=== PATIENT | male | born 1970 | race Caucasian/White ===

== ENCOUNTER 2017-02-24 12:00 | Emergency (ER) | payer OTHER ==
[2017-02-24 12:08] VITALS: BP 166/104
[2017-02-24] MEDS ORDERED: Amoxicillin/Clavulanate TAB* 875 MG PO ONE (13:06)
[2017-02-24 14:05] LABS: Hematocrit 44 % (42-52); Mean Corpuscular HGB Conc 34 g/dl (31-36); Mean Corpuscular Hemoglobin 33 pg (27-31); Mean Corpuscular Volume 96 fL (80-94); Mean Platelet Volume 8 um3 (7.4-10.4); Red Blood Count 4.59 10^6/ul (4.0-5.4); Red Cell Distribution Width 15 % (10.5-15); White Blood Count 9.1 10^3/ul (3.5-10.8)
[2017-02-24 16:45] LABS: Albumin 4.6 g/dL (3.2-5.2); BUN/Creatinine Ratio 12.5 (8-20); Calcium 9.3 mg/dL (8.6-10.3); EGFR African American 133.3 (>60); EGFR Non-African American 103.6 (>60); Globulin 3.2 g/dL (2-4); Potassium 4.6 mmol/L (3.5-5.0); Total Bilirubin 0.6 mg/dL (0.2-1.0); Total Protein 7.8 g/dL (6.4-8.9)
--- NOTE | 2017-02-25 17:05 | ED ---
Kendal Joaquin Rebecca, scribed for Collin Tillman MD on 02/24/17 at 1301 . Throat Pain/Nasal Congestion - HPI Summary HPI Summary: Pt is a 46 y/o M who presents to ED c/o right ear bleeding. Sx began gradually last night at 2300 and have been intermittent since onset. Reports using Q-Tips in the ear to try to clear out some of the blood. Sx aggravated and alleviated by nothing. Additionally c/o mild R-sided parietal RODGERS, ranked 2/10. Denies any fever, chills, nasal congestion or pain in the R ear. Pt takes Warfarin to treat A Fib. Has not been swimming recently. No recent trauma. No prior similar episodes - History of Current Complaint Chief Complaint: EDEarPain Hx Obtained From: Patient Onset/Duration: Gradual Onset, Lasting Hours, Still Present Associated Signs And Symptoms: Positive: Negative - Allergies/Home Medications Allergies/Adverse Reactions: Allergies Allergy/AdvReac Type Severity Reaction Status Date / Time No Known Allergies Allergy Verified 12/21/16 13:59 PMH/Surg Hx/FS Hx/Imm Hx Endocrine/Hematology History: Denies: Hx Anticoagulant Therapy, Hx Diabetes, Hx Systemic Lupus Erythematosus, Hx Anemia, Hx Unexplained Bleeding Cardiovascular History: Reports: Hx Angina, Hx Atrial Fibrillation, Hx Hypercholesterolemia, Hx Hypertension Denies: Hx Aneurysm, Hx Angioplasty, Hx Auto Implanted Cardiovert Defib, Hx Cardiac Arrest, Hx Cardiomegaly, Hx Congenital Heart Disease, Hx Congestive Heart Failure, Hx Coronary Artery Disease, Hx Deep Vein Thrombosis, Hx Embolism , Hx Hypotension, Hx Myocardial Infarction, Hx Pacemaker/ICD, Hx Peripheral Vascular Disease, Hx Rheumatic Fever, Hx Syncope, Hx Valvular Heart Disease, Other Cardiovascular Problems/Disorders Respiratory History: Reports: Hx Asthma Denies: Hx Chronic Obstructive Pulmonary Disease (COPD) History: Denies: Hx Renal Disease Musculoskeletal History: Reports: Hx Back Problems - chronic back pain Denies: Hx Osteoporosis Sensory History: Reports: Hx Contacts or Glasses, Hx Vision Problem Denies: Hx Hearing Aid Opthamlomology History: Reports: Hx Contacts or Glasses, Hx Vision Problem Neurological History: Reports: Hx Seizures Denies: Hx Dementia, Hx Developmental Delay, Hx Headaches, Hx Migraine, Hx Nerve Disease, Hx Spinal Cord Injury, Hx Transient Ischemic Attacks (TIA), Other Neuro Impairments/Disorders Psychiatric History: Reports: Hx Substance Abuse - alcohol Denies: Hx Panic Disorder - Immunization History Date of Tetanus Vaccine: unknown Date of Influenza Vaccine: unknown Infectious Disease History: No Infectious Disease History: Denies: Hx Clostridium Difficile, Hx Hepatitis, Hx Human Immunodeficiency Virus (HIV), Hx of Known/Suspected MRSA, Hx Shingles, Hx Tuberculosis, Hx Known/ Suspected VRE, Hx Known/Suspected VRSA, History Other Infectious Disease, Traveled Outside the [place] in Last 30 Days - Family History Known Family History: Positive: Cardiac Disease, Diabetes - Social History Alcohol Use: Weekly Alcohol Amount: 1-2 times per week Substance Use Type: Reports: None Smoking Status (MU): Current Every Day Smoker Type: Cigarettes Amount Used/How Often: 1/2 PPD Length of Time of Smoking/Using Tobacco: 30 years Have You Smoked in the Last Year: Yes Review of Systems Negative: Fever, Chills ENT: Other - R ear bleeding Positive: Other - Denies nasal congestion. Negative: Ear Ache Positive: Headache - Mild R-sided parietal RODGERS All Other Systems Reviewed And Are Negative: Yes Physical Exam - Summary Physical Exam Summary: VITAL SIGNS: Reviewed. GENERAL: ~Patient is a well-developed and nourished male who is lying comfortable in the stretcher. ~Patient is not in any acute respiratory distress. HEAD AND FACE: No signs of trauma. ~No ecchymosis, hematomas or skull depressions. No sinus tenderness. EYES: PERRLA, EOMI x 2, No injected conjunctiva, no nystagmus. EARS: Hearing grossly intact. L ear canal and TM is within normal limits. R TM is perforated with some blood in the ear canal without any actively bleeding. MOUTH: Oropharynx within normal limits. NECK: Supple, trachea is midline, no adenopathy, no JVD, no carotid bruit, no c- spine tenderness, neck with full ROM. CHEST: Symmetric, no tenderness at palpation LUNGS: Clear to auscultation bilaterally. No wheezing or crackles. CVS: Regular rate and rhythm, S1 and S2 present, no murmurs or gallops appreciated. ABDOMEN: Soft, non-tender. No signs of distention. No rebound no guarding, and no masses palpated. Bowel sounds are normal. EXTREMITIES: FROM in all major joints, no edema, no cyanosis or clubbing. NEURO: Alert and oriented x 3. No acute neurological deficits. Speech is normal and follows commands. SKIN: Dry and warm Triage Information Reviewed: Yes Vital Signs On Initial Exam: Initial Vitals Temp Pulse Resp BP Pulse Ox 97.8 F 66 20 166/104 100 02/24/17 12:02 02/24/17 12:02 02/24/17 12:02 02/24/17 12:02 02/24/17 12:02 Vital Signs Reviewed: Yes Diagnostics - Vital Signs Vital Signs Temp Pulse Resp BP Pulse Ox 02/24/17 12:05 97.8 F 74 20 166/104 100 02/24/17 12:02 97.8 F 66 20 166/104 100 - Laboratory Lab Results: Lab Results 02/24/17 02/24/17 02/24/17 Range/Units 13:55 13:55 13:55 WBC 9.1 (3.5-10.8) 10^3/ul RBC 4.59 (4.0-5.4) 10^6/ul Hgb 15.0 (14.0-18.0) g/dl Hct 44 (42-52) % MCV 96 H (80-94) fL MCH 33 H (27-31) pg MCHC 34 (31-36) g/dl RDW 15 (10.5-15) % Plt Count 188 (150-450) 10^3/ul MPV 8 (7.4-10.4) um3 Neut % (Auto) 56.9 (38-83) % Lymph % (Auto) 20.7 L (25-47) % Greer % (Auto) 11.9 H (1-9) % Eos % (Auto) 9.2 H (0-6) % Baso % (Auto) 1.3 (0-2) % Absolute Neuts (auto) 5.2 (1.5-7.7) 10^3/ul Absolute Lymphs (auto) 1.9 (1.0-4.8) 10^3/ul Absolute Monos (auto) 1.1 H (0-0.8) 10^3/ul Absolute Eos (auto) 0.8 H (0-0.6) 10^3/ul Absolute Basos (auto) 0.1 (0-0.2) 10^3/ul Absolute Nucleated RBC 0.01 10^3/ul Nucleated RBC % 0.1 INR (Anticoag Therapy) 3.88 H (0.89-1.11) Sodium 130 L (133-145) mmol/L Potassium 4.6 (3.5-5.0) mmol/L Chloride 98 L (101-111) mmol/L Carbon Dioxide 26 (22-32) mmol/L Anion Gap 6 (2-11) mmol/L BUN 10 (6-24) mg/dL Creatinine 0.80 (0.67-1.17) mg/dL Est GFR ( Amer) 133.3 (>60) Est GFR (Non-Af Amer) 103.6 (>60) BUN/Creatinine Ratio 12.5 (8-20) Glucose 98 (70-100) mg/dL Calcium 9.3 (8.6-10.3) mg/dL Total Bilirubin 0.60 (0.2-1.0) mg/dL AST 27 (13-39) U/L ALT 21 (7-52) U/L Alkaline Phosphatase 72 (34-104) U/L Total Protein 7.8 (6.4-8.9) g/dL Albumin 4.6 (3.2-5.2) g/dL Globulin 3.2 (2-4) g/dL Albumin/Globulin Ratio 1.4 (1-3) Result Diagrams: 02/24/17 13:55 02/24/17 13:55 Lab Statement: Any lab studies that have been ordered have been reviewed, and results considered in the medical decision making process. Re-Evaluation - Re-Evaluation First Eval Re-Evaluation Time: 14:40 Change: Improved Comment: Discussed results and D/C plan with the patient EENT Course/Dx - Course Assessment/Plan: Pt is a 46 y/o M who presents to ED c/o right ear bleeding. Sx began gradually last night at 2300 and have been intermittent since onset. Reports using Q-Tips in the ear to try to clear out some of the blood. Sx aggravated and alleviated by nothing. Additionally c/o mild R-sided parietal RODGERS , ranked 2/10. Denies any fever, chills, nasal congestion or pain in the R ear. Pt takes Warfarin to treat A Fib. Has not been swimming recently. No recent trauma. No prior similar episodes. Test results show INR is 3.88, normal HNH. In the PE, the patient reveals that he has a R TM perforation. The patient is not actively bleeding. He has remnants of blood which I moved. It seems that last night, the patient was cleaning his ear with a Q-Tip and likely perforated the TM. The patient was placed on Augmentin and will be D/C to home with follow up with ENT. The patient denies any hearing loss, fever, chills or any pain. He is hemodynamically stable and A&Ox3. - Differential Diagnoses Differential Diagnoses: Other - Otitis Media, Otitis Externa, - Diagnoses Provider Diagnoses: Tympanic membrane perforation Discharge - Discharge Plan Condition: Stable Disposition: HOME Prescriptions: Amoxicillin/Clavulanate TAB* [Augmentin TAB 875*] 875 mg PO BID #9 tab Patient Education Materials: Ruptured Eardrum (ED) Referrals: Melecio Nunez MD [Medical Doctor] - 3 Days The documentation as recorded by the Kendal oliveira Rebecca accurately reflects the service I personally performed and the decisions made by , Collin Tillman MD.
== END 2017-02-24 14:57 | disposition home or self-care (01) ==
LOC: ED 12:00
DX: H72.90 Unspecified perforation of tympanic membrane, unspecified ear (principal); R51 Headache; R09.81 Nasal congestion; F17.210 Nicotine dependence, cigarettes, uncomplicated
CPT/HCPCS: 36415; 80053; 85025; 85610; 99282; A9270-GY

== ENCOUNTER → 2017-12-29 17:11 | Emergency (ER) | payer OTHER ==
[~2017-12-29 17:11] MED LIST: Al Hydrox/Mg Hydrox/Simet LIQ* 30 ML UDC PO ONE; Amiodarone IV VIAL* 50 MG/ML 3 ML VIAL (150 MG) ONE; Aspirin 81 mg CHEW TAB* 81 MG TAB.CHEW PO ONE; Atropine SYRINGE* 0.1 MG/ML 10 ML SYRINGE (1 MG) ONE; EPINEPHrine SYR 0.1 MG/ML* (1:10,000) SYRINGE ONE; Famotidine IV* 10 MG/ML 2 ML (20 mg) IV SLOW PU ONE; Famotidine IV* 10 MG/ML 2 ML (20 mg) ONE; LORazepam INJ* 2 MG/ML 1 ML VIAL ONE; Midazolam* 1 MG/ML 5 ML VIAL (5 MG) ONE; Ondansetron INJ* 2 MG/ML VIAL IV ONE; Ondansetron INJ* 2 MG/ML VIAL ONE; Sodium Bicarbonate 8.4%* 50 ML SYRINGE ONE
--- NOTE | 2017-12-29 18:04 | RAD ---
INDICATION: Chest pain. COMPARISON: Comparison is made with a prior study from March 23, 2015. TECHNIQUE: A portable view of the chest was obtained. FINDINGS: Cardiac and mediastinal contours appear to be within normal limits. The lungs are clear. No pleural effusion is seen. IMPRESSION: NO EVIDENCE FOR ACUTE DISEASE.
[2017-12-29 18:12] LABS: ABS Basophils 0.1 10^3/ul (0-0.2); ABS Eosinophils 0.6 10^3/ul (0-0.6); ABS Lymphocytes 1.5 10^3/ul (1.0-4.8); ABS Monocytes 0.7 10^3/ul (0-0.8); ABS Neutrophils 7.2 10^3/ul (1.5-7.7); ABS Nucleated RBC 0 10^3/ul; Eosinophil % 5.7 % (0-6); Hematocrit 44 % (42-52); Hemoglobin 15.3 g/dl (14.0-18.0); Lymphocyte % 14.8 % (25-47); Mean Corpuscular HGB Conc 35 g/dl (31-36); Mean Corpuscular Hemoglobin 34 pg (27-31); Mean Corpuscular Volume 97 fL (80-94); Mean Platelet Volume 7.5 um3 (7.4-10.4); Nucleated Red Blood Cells % 0.1; Platelet Count 220 10^3/ul (150-450); Red Blood Count 4.54 10^6/ul (4.0-5.4); Red Cell Distribution Width 14 % (10.5-15)
[2017-12-29 18:29] LABS: INR 3.42 (0.77-1.02)
[2017-12-29 18:30] LABS: EGFR Non-African American 96.2 (>60)
[2017-12-29 19:09] VITALS: BP 132/103
--- NOTE | 2017-12-29 21:30 | ED ---
HPI Chest Pain - HPI Summary HPI Summary: Patient is a 47-year-old male BIBA with a history of cardiomegaly, hypertension , atrial fibrillation presenting to the ED with chief complaint of mid to upper sternal chest pain which radiated up into the neck which occurred approximately 1 hour prior to arrival and lasting approximately 10 minutes. He is asymptomatic on arrival. He states he does not currently have chest pain, denies shortness of breath denies nausea, vomiting, diarrhea, constipation, headache, visual changes or throat pain. He denies ingesting anything abnormal. Patient is a heavy smoker and drinks alcohol frequently. Currently on Coumadin through Dr. Dunlap and last cardiology visit was 2017. Patient of Dr. Monteiro and [employer] is Dr. Ordonez. He's never had anything like this before. Symptoms are not aggravated with positioning or medication. Symptoms are alleviated by spontaneous resolution. Denies any vigorous exercise or sports. Denies recent URI. I am He was given 4 baby aspirin in the ambulance PUNCH HAND. - History of Current Complaint Chief Complaint: EDChestPainROMI Time Seen by Provider: 12/29/17 17:37 Hx Obtained From: Patient Onset/Duration: Started Hours Ago Time of Onset: 04:45 Timing: Constant, Lasting Minutes Initial Severity: Moderate Current Severity: None Pain Intensity: 0 Pain Scale Used: 0-10 Numeric Chest Pain Location: Upper Sternal - radiating to the neck Chest Pain Radiates: Yes Chest Pain Radiates To:: Neck Character: Other: - burning Aggravating Factor(s): Nothing Alleviating Factor(s): Spontaneous Resolution Associated Signs and Symptoms: Negative: Weakness, Dizziness, Shortness of Breath, Diaphoresis, Nausea, Productive Cough, Nonproductive Cough, Bloody Sputum, Wheezing, Nasal Congestion, URI - Risk Factors Pulmonary Embolism Risk Factors: Smoking TAD Risk Factors: Smoking, Hypertension AMI/ACS Risk Factors: Hypertension, Smoking, Dyslipidemia - Allergy/Home Medications Allergies/Adverse Reactions: Allergies Allergy/AdvReac Type Severity Reaction Status Date / Time No Known Allergies Allergy Verified 12/21/16 13:59 Home Medications: Home Medications Acetaminophen [Tylenol Extra Strength] 1,000 mg PO DAILY PRN 12/29/17 [History Confirmed 12/29/17] Aspirin EC TAB* [Ecotrin EC Low Dose 81 MG*] 81 mg PO DAILY 12/29/17 [History Confirmed 12/29/17] Diltiazem CD CAP* [Cardizem CD CAP*] 120 mg PO DAILY 12/29/17 [History Confirmed 12/29/17] Folic Acid TAB* [Folvite TAB*] 1 mg PO DAILY 12/29/17 [History Confirmed ] Lidocaine 4% TOPICAL* [Xylocaine Topical 4%*] 1 applic TOPICAL TID 12/29/17 [ History Confirmed 12/29/17] Lisinopril TAB* [Prinivil TAB*] 10 mg PO DAILY 12/29/17 [History Confirmed 12/29] Meloxicam(NF) [Mobic(NF)] 7.5 mg PO DAILY PRN 12/29/17 [History Confirmed ] Metoprolol Succinate XL TAB* [Toprol XL TAB*] 100 mg PO DAILY 12/29/17 [History Confirmed 12/29/17] Thiamine TAB* [Vitamin B-1 TAB*] 100 mg PO DAILY 12/29/17 [History Confirmed ] Warfarin TAB(*) [Coumadin TAB(*)] 5 mg PO DAILY 12/29/17 [History Confirmed ] levETIRAcetam TAB* [Keppra TAB*] 750 mg PO BID 12/29/17 [History Confirmed 12/29] PMH/Surg Hx/FS Hx/Imm Hx Previously Healthy: No Endocrine/Hematology History: Denies: Hx Anticoagulant Therapy, Hx Diabetes, Hx Systemic Lupus Erythematosus, Hx Anemia, Hx Unexplained Bleeding Cardiovascular History: Reports: Hx Angina, Hx Atrial Fibrillation, Hx Hypercholesterolemia, Hx Hypertension Denies: Hx Aneurysm, Hx Angioplasty, Hx Auto Implanted Cardiovert Defib, Hx Cardiac Arrest, Hx Cardiomegaly, Hx Congenital Heart Disease, Hx Congestive Heart Failure, Hx Coronary Artery Disease, Hx Deep Vein Thrombosis, Hx Embolism , Hx Hypotension, Hx Myocardial Infarction, Hx Pacemaker/ICD, Hx Peripheral Vascular Disease, Hx Rheumatic Fever, Hx Syncope, Hx Valvular Heart Disease, Other Cardiovascular Problems/Disorders Respiratory History: Reports: Hx Asthma Denies: Hx Chronic Obstructive Pulmonary Disease (COPD) History: Denies: Hx Renal Disease Musculoskeletal History: Reports: Hx Back Problems - chronic back pain Denies: Hx Osteoporosis Sensory History: Reports: Hx Contacts or Glasses, Hx Vision Problem Denies: Hx Hearing Aid Opthamlomology History: Reports: Hx Contacts or Glasses, Hx Vision Problem Neurological History: Reports: Hx Seizures Denies: Hx Dementia, Hx Developmental Delay, Hx Headaches, Hx Migraine, Hx Nerve Disease, Hx Spinal Cord Injury, Hx Transient Ischemic Attacks (TIA), Other Neuro Impairments/Disorders Psychiatric History: Reports: Hx Substance Abuse - alcohol Denies: Hx Panic Disorder - Cancer History Hx Chemotherapy: No Hx Radiation Therapy: No - Surgical History Hx Anesthesia Reactions: No - Immunization History Date of Tetanus Vaccine: unknown Date of Influenza Vaccine: unknown Hx Pertussis Vaccination: No Immunizations Up to Date: No Infectious Disease History: No Infectious Disease History: Denies: Hx Clostridium Difficile, Hx Hepatitis, Hx Human Immunodeficiency Virus (HIV), Hx of Known/Suspected MRSA, Hx Shingles, Hx Tuberculosis, Hx Known/ Suspected VRE, Hx Known/Suspected VRSA, History Other Infectious Disease, Traveled Outside the [place] in Last 30 Days - Family History Known Family History: Positive: Cardiac Disease, Diabetes - Social History Occupation: Employed Full-time Lives: With Family - Merged With [employer] Alcohol Use: Weekly Alcohol Amount: 1-2 times per week Hx Substance Use: Yes Substance Use Type: Reports: Prescribed Hx Tobacco Use: Yes Smoking Status (MU): Heavy Every Day Tobacco Smoker Type: Cigarettes Do You Chew or Dip Tobacco: No Amount Used/How Often: 1/2 PPD Have You Chewed or Dipped Tobacco in the LAST YEAR: No Length of Time of Smoking/Using Tobacco: 30 years Have You Smoked in the Last Year: Yes Review of Systems Negative: Fever, Chills, Fatigue, Skin Diaphoresis Negative: Photophobia, Blurred Vision, Diplopia Positive: Other - throat pain radiated from upper sternal region Positive: Chest Pain Negative: Shortness Of Breath, Cough Negative: Abdominal Pain, Vomiting, Diarrhea, Nausea Genitourinary: Negative Positive: no symptoms reported, see HPI Negative: Arthralgia, Myalgia Negative: Headache, Weakness, Paresthesia, Numbness Negative: Anxious All Other Systems Reviewed And Are Negative: Yes Physical Exam Triage Information Reviewed: Yes Vital Signs On Initial Exam: Initial Vitals Temp Pulse Resp BP Pulse Ox 98.1 F 88 18 128/97 98 12/29/17 17:25 12/29/17 17:25 12/29/17 17:25 12/29/17 17:25 12/29/17 17:25 Vital Signs Reviewed: Yes Appearance: Positive: Well-Appearing, Well-Nourished Skin: Positive: Erythema @ - Face neck and chest, he states this is his baseline Head/Face: Positive: Normal Head/Face Inspection. Negative: Temporal Artery Tenderness, TMJ Tenderness Eyes: Positive: EOMI, ZEINA, Conjunctiva Clear. Negative: Conjunctiva Inflammed , Discharge ENT: Positive: Pharynx normal, Uvula midline. Negative: Pharyngeal erythema, Tonsillar swelling, Tonsillar exudate Neck: Positive: Supple, Other: - No tenderness to the bilateral cervical anterior lymph nodes Respiratory/Lung Sounds: Positive: Breath Sounds Present Cardiovascular: Positive: Pulses are Symmetrical in both Upper and Lower Extremities, IRR. Negative: Bradycardia, Tachycardia, Leg Edema Left, Leg Edema Right Abdomen Description: Positive: Nontender, No Organomegaly, Soft Musculoskeletal: Positive: Normal, Strength/ROM Intact Neurological: Positive: Normal, Sensory/Motor Intact, Alert, Oriented to Person Place, Time, CN Intact II-III, Normal Gait, Facial Symmetry Psychiatric: Positive: Normal, Affect/Mood Appropriate AVPU Assessment: Verbal (Reponds To) - Ted Coma Scale Best Eye Response: 4 - Spontaneous Best Motor Response: 6 - Obeys Commands Best Verbal Response: 5 - Oriented Coma Scale Total: 15 Diagnostics - Vital Signs Vital Signs Temp Pulse Resp BP Pulse Ox 12/29/17 20:00 22 12/29/17 19:33 44 12/29/17 19:01 91 16 132/103 93 12/29/17 19:00 96 14 96 12/29/17 18:31 94 18 116/89 98 12/29/17 18:01 94 13 131/95 98 12/29/17 18:00 17 12/29/17 17:31 95 16 128/97 100 12/29/17 17:28 79 99 12/29/17 17:25 98.1 F 88 18 128/97 98 - Laboratory Lab Results: Lab Results 12/29/17 12/29/17 12/29/17 Range/Units 18:02 18:02 18:02 WBC 10.0 (3.5-10.8) 10^3/ul RBC 4.54 (4.0-5.4) 10^6/ul Hgb 15.3 (14.0-18.0) g/dl Hct 44 (42-52) % MCV 97 H (80-94) fL MCH 34 H (27-31) pg MCHC 35 (31-36) g/dl RDW 14 (10.5-15) % Plt Count 220 (150-450) 10^3/ul MPV 7.5 (7.4-10.4) um3 Neut % (Auto) 71.6 (38-83) % Lymph % (Auto) 14.8 L (25-47) % Marshall % (Auto) 7.0 (0-7) % Eos % (Auto) 5.7 (0-6) % Baso % (Auto) 0.9 (0-2) % Absolute Neuts (auto) 7.2 (1.5-7.7) 10^3/ul Absolute Lymphs (auto) 1.5 (1.0-4.8) 10^3/ul Absolute Monos (auto) 0.7 (0-0.8) 10^3/ul Absolute Eos (auto) 0.6 (0-0.6) 10^3/ul Absolute Basos (auto) 0.1 (0-0.2) 10^3/ul Absolute Nucleated RBC 0 10^3/ul Nucleated RBC % 0.1 INR (Anticoag Therapy) 3.42 H (0.77-1.02) APTT 52.3 H (26.0-36.3) seconds Sodium (139-145) mmol/L Potassium (3.5-5.0) mmol/L Chloride (101-111) mmol/L Carbon Dioxide (22-32) mmol/L Anion Gap (2-11) mmol/L BUN (6-24) mg/dL Creatinine (0.67-1.17) mg/dL Est GFR ( Amer) (>60) Est GFR (Non-Af Amer) (>60) BUN/Creatinine Ratio (8-20) Glucose (70-100) mg/dL Lactic Acid (0.5-2.0) mmol/L Calcium (8.6-10.3) mg/dL Magnesium (1.9-2.7) mg/dL Total Bilirubin (0.2-1.0) mg/dL AST (13-39) U/L ALT (7-52) U/L Alkaline Phosphatase (34-104) U/L Total Creatine Kinase (10-223) U/L CK-MB (CK-2) (0.6-6.3) ng/mL Myoglobin (17.4-105.7) ng/mL Troponin I (<0.04) ng/mL B-Natriuretic Peptide 106 H ( - 100) pg/mL Total Protein (6.4-8.9) g/dL Albumin (3.2-5.2) g/dL Globulin (2-4) g/dL Albumin/Globulin Ratio (1-3) 12/29/17 12/29/17 Range/Units 18:02 18:02 WBC (3.5-10.8) 10^3/ul RBC (4.0-5.4) 10^6/ul Hgb (14.0-18.0) g/dl Hct (42-52) % MCV (80-94) fL MCH (27-31) pg MCHC (31-36) g/dl RDW (10.5-15) % Plt Count (150-450) 10^3/ul MPV (7.4-10.4) um3 Neut % (Auto) (38-83) % Lymph % (Auto) (25-47) % Marshall % (Auto) (0-7) % Eos % (Auto) (0-6) % Baso % (Auto) (0-2) % Absolute Neuts (auto) (1.5-7.7) 10^3/ul Absolute Lymphs (auto) (1.0-4.8) 10^3/ul Absolute Monos (auto) (0-0.8) 10^3/ul Absolute Eos (auto) (0-0.6) 10^3/ul Absolute Basos (auto) (0-0.2) 10^3/ul Absolute Nucleated RBC 10^3/ul Nucleated RBC % INR (Anticoag Therapy) (0.77-1.02) APTT (26.0-36.3) seconds Sodium 131 L (139-145) mmol/L Potassium 4.6 (3.5-5.0) mmol/L Chloride 100 L (101-111) mmol/L Carbon Dioxide 22 (22-32) mmol/L Anion Gap 9 (2-11) mmol/L BUN 11 (6-24) mg/dL Creatinine 0.85 (0.67-1.17) mg/dL Est GFR ( Amer) 123.7 (>60) Est GFR (Non-Af Amer) 96.2 (>60) BUN/Creatinine Ratio 12.9 (8-20) Glucose 104 H (70-100) mg/dL Lactic Acid 1.2 (0.5-2.0) mmol/L Calcium 9.4 (8.6-10.3) mg/dL Magnesium 2.0 (1.9-2.7) mg/dL Total Bilirubin 0.60 (0.2-1.0) mg/dL AST 25 (13-39) U/L ALT 14 (7-52) U/L Alkaline Phosphatase 64 (34-104) U/L Total Creatine Kinase 61 (10-223) U/L CK-MB (CK-2) 1.5 (0.6-6.3) ng/mL Myoglobin 24.8 (17.4-105.7) ng/mL Troponin I 0.05 H* (<0.04) ng/mL B-Natriuretic Peptide ( - 100) pg/mL Total Protein 7.6 (6.4-8.9) g/dL Albumin 4.0 (3.2-5.2) g/dL Globulin 3.6 (2-4) g/dL Albumin/Globulin Ratio 1.1 (1-3) Result Diagrams: 12/29/17 18:02 12/29/17 18:02 Diagnostic Studies Comment: Hyponatremia, baseline Lab Statement: Any lab studies that have been ordered have been reviewed, and results considered in the medical decision making process. - Radiology No standard instances Xray Interpretation: No Acute Changes Radiology Interpretation Completed By: Radiologist - No active acute cardiopulmonary disease - EKG No standard instances EKG Rhythm: Atrial Fibrillation EKG Comparison: No Significant Change Re-Evaluation - Re-Evaluation First Eval Re-Evaluation Time: 19:00 Change: Unchanged - Continues to be asymptomatic at 19:00 Second Eval Re-Evaluation Time: 19:25 Change: Worse Comment: Chest and neck pain returns Chest Pain Course/Dx - Course Course Of Treatment: On arrival, patient was evaluated for chest pain since resolved PUNCH HAND. Vital signs stable on arrival at 116/89, pulse 94, respirations 18, 98% on room air. He states his symptoms had resolved approximately one hour ago, prior to arrival and he feels safe to go home. At this time I have convinced him to let us provide some blood work, an EKG and a chest x-ray to further assess his chest pain. A chest pain protocol was followed. Troponin was obtained and shows a slight elevation at 0.05. Other labs unremarkable except for a slight hyponatremia which is at his baseline when compared to previous lab draws. Chest x-ray obtained and compared to his previous chest x- ray in 2015 which shows no acute changes. Read by Dr. Kim and reviewed by myself as no active acute cardiopulmonary disease. On physical exam, he appears to be comfortable, nondiaphoretic and in no acute distress. EKG shows atrial fibrillation with normal rate. Discussed the case with Dr. Christensen who recommends a consult to Dr. Beaver. Spoke with Dr. Beaver at 6:55p who recommended a second troponin and follow-up with Dr. Ordonez if all other labs are normal, the trop does not elevate and he remains otherwise stable. Discussed this with patient and girlfriend and they're okay to wait for 1 more troponin. At approximately 7:10 PM, I was called in the room by the RN who states patient was complaining of severe neck pain. I immediately ordered an EKG and asked Dr. Christensen to go in the room immediately for an evaluation. During this time, the patient is complaining of severe upper mid chest pain radiating up into the neck and he begins to wretch. EKG obtained which shows some ST depressions as well as his A. fib. Blood pressure now at 163/103. RN then states he begins to have seizure-like activity. Code is called at 19:31. Dr. Christensen in the room. Ceased CPR with girlfriend at bedside and Dr. Christensen to call time of at 20:04pm. - Chest Pain Differential Diagnosis/HQI/PQRI: Acute LA, ACS, Angina - Diagnoses Provider Diagnoses: Chest pain - Provider Notifications Discussed Care Of Patient With: Terence Beaver - Spoke with Dr. Beaver at 6:55p who recommends 2nd troponin and f/u with Dr. Ordonez Time Discussed With Above Provider: 18:55 - Critical Care Time Critical Care Time: 30-74 min Discharge - Sign-Out/Discharge Documenting (check all that apply): Discharge - Discharge Plan Condition: Disposition: ADMITTED TO [facility] Referrals: Eldon Rosario MD [Primary Care Provider] - - Billing Disposition and Condition Condition: Disposition: [facility]
--- NOTE | 2017-12-29 21:44 | ED ---
Progress - Progress Note Progress Note: Ranjana Lima consulted me on Mr. Rodriguez after his first troponin returned low indeterminate at 0.05. He had had an episode of throat and anterior chest pain prior to coming to the ED which lasted about 10 minutes and had been symptom- free since. He had no CAD history but was on Coumadin for chronic A-fib and was a smoker. He felt fine and wanted to go home. I recommended a repeat troponin and a consult with the Head Track Coach after reviewing his ECG which showed only A-fib with a controlled rate. Around 1919 she consulted me again because his chest/throat pain had returned worse than before. I went with her immediately into the room where a repeat ECG was already in progress. Mr. Rodriguez was diaphoretic, grasping his throat and retching. He could not answer any questions. and his ECG was hard to get but showed A-fib with RVR, mild diffuse ST depressions and ventricular ectopy including a couplet. While I was comparing his two ECGs, he began to exhibit seizure activity and began to be bradycardic. I ordered atropine and took his pulse. I could not locate a pulse at that point and CPR was initiated and an ABC alert called. ACLS protocols were followed for 33 minutes. Mr. Rodriguez continued to quickly ' ubaldo down' and went into either asystole or a fine V-fib. We tried shocking and giving Amiodarone. Prior to losing his bradycardic rhythm, I used the U/S to evaluate his cardiac activity and saw only a slow, weak ventricular compression. ACLS protocols were ineffective and he was pronounced at 2003. His girlfriend was present for the full code. Just as I was pronouncing the patient, the electrical tech informed me that we were getting some gurgling with the bagging. At that point I could still hear good breath sounds on the right but not on the left. He was not hyper-resonant to percussion on either side and I suspect the tube slipped down a little into the right mainstem. Dr. Lima, the Control Area Operator, requested that we keep him as he was and put him in the morgue. An autopsy is planned. - EKG/XRAY/CT EKG: ST depression, changed from - previous Course/Dx - Diagnoses Provider Diagnoses: Cardiopulmonary arrest - Critical Care Time Critical Care Time: 30-74 min Discharge - Sign-Out/Discharge Documenting (check all that apply): Discharge - Discharge Plan Condition: Disposition: Referrals: Eldon Rosario MD [Primary Care Provider] - - Billing Disposition and Condition Condition: Disposition: E
== END | disposition short-term general hospital (02) ==
LOC: ED 17:11
DX: I46.9 Cardiac arrest, cause unspecified (principal); R07.89 Other chest pain; I48.91 Unspecified atrial fibrillation; Z79.01 Long term (current) use of anticoagulants; I20.9 Angina pectoris, unspecified; I10 Essential (primary) hypertension; E78.00 Pure hypercholesterolemia, unspecified; J45.909 Unspecified asthma, uncomplicated; R56.9 Unspecified convulsions; F17.210 Nicotine dependence, cigarettes, uncomplicated
CPT/HCPCS: 36415; 71045; 80053; 82550; 82553; 83605; 83735; 83874; 83880; 84484; 85025; 85610; 85730; 93005; 96374; 99284; A9270-GY; J0171; J0282; J0461; J2060; J2250; J2405

== ENCOUNTER 2017-12-29 20:04 | Day surgery (SDC) | payer OTHER | END 2017-12-30 23:56 | disposition home or self-care (01) | LOC: OR 20:04 | PROVIDERS: ATTEND Emergency Medicine | DX: Z52.9 Donor of unspecified organ or tissue (principal) ==